=== PATIENT | male | born 1985 | race American Indian/Alaskan Native ===

== ENCOUNTER 2020-06-14 16:32 | Emergency (ER) | payer SELFPAY ==
[2020-06-14 16:41] VITALS: BP 135/87
--- NOTE | 2020-06-14 18:09 | Event Note ---
ED Screening Note Date of service: 06/14/20 Time: 18:04 ED Screening Note: 35-year-old -[place] male presents to the emergency room with a chronic history of reflux and states that he is having neck abdominal pain with nausea and vomiting. Reports pain is worse when he eats. He states he is able to drink water. He takes Tagamet and Tums. Does not have a primary care provider. Denies any hematemesis. Denies any diarrhea. This initial assessment/diagnostic orders/clinical plan/treatment(s) is/are subject to change based on patients health status, clinical progression and re- assessment by fellow clinical providers in the ED. Further treatment and workup at subsequent clinical providers discretion. Patient/guardian urged not to elope from the ED as their condition may be serious if not clinically assessed and managed. Initial orders include:
[2020-06-14] MEDS ORDERED: SUCRALFATE 1 GM/10 ML ORAL LIQD PO ONE (18:10)
[2020-06-14] MEDS ORDERED: FAMOTIDINE 20 MG TAB PO ONE (18:10)
[2020-06-14 18:45] LABS: Basophils % (Auto) 0.6 % (0.0-1.8); Eosinophils # (Auto) 0.1 K/mm3 (0.0-0.4); Eosinophils % (Auto) 0.9 % (0.0-4.3); Hematocrit 45.6 % (35.5-45.6); Hemoglobin 15.2 gm/dl (11.8-15.2); Lymphocytes # (Auto) 1.5 K/mm3 (1.2-5.4); Lymphocytes % (Auto) 24.4 % (13.4-35.0); Mean Corpuscular HGB Conc 33 % (32-34); Mean Corpuscular Volume 99 fl (84-94); Monocytes # (Auto) 0.5 K/mm3 (0.0-0.8); Monocytes % (Auto) 8.5 % (0.0-7.3); Platelet Count 298 K/mm3 (140-440); Red Cell Distribution Width 13.4 % (13.2-15.2)
[2020-06-14 19:06] LABS: Alanine Aminotransferase 20 units/L (7-56); Albumin 4.2 g/dL (3.9-5); BUN/Creatinine Ratio 8; Blood Urea Nitrogen 8 mg/dL (9-20); Calcium 10.1 mg/dL (8.4-10.2); Hemolysis Index 11
[2020-06-14] MEDS ORDERED: ALUM-MAG HYDROXIDE-SIMETHICONE 200-200-20MG/5ML ORAL LIQD 30 ML PO ONE (20:43)
[2020-06-14] MEDS ORDERED: LIDOCAINE VISCOUS 2% 15 ML ORAL LIQD PO ONE (20:43)
--- NOTE | 2020-06-14 20:43 | Emergency Department Report ---
ED General Adult HPI - General Chief complaint: Abdominal Pain Stated complaint: WEAK/BACK/ABDOMINAL PAIN Time Seen by Provider: 06/14/20 19:24 Source: patient Mode of arrival: Ambulatory Limitations: No Limitations - History of Present Illness Initial comments: 35-year-old -Thai male patient presents with complaints of upper abdominal pain intermittently x1 year, worsening for the past 3 days. He describes the pain as burning and states it improves with cimetidine. Patient also states the pain does not occur if he eats foods. He rates his current pain as a 5/10 in severity. He denies any vomiting, diarrhea, melena/hematochezia, fever/chills/sweats, chest pain, or shortness of breath. No prior history of abdominal surgeries per patient. He has not seen his primary care doctor for his symptoms. Severity scale (0 -10): 5 - Related Data Previous Rx's Medication Instructions Recorded Last Taken Type Omeprazole 40 mg PO QAM #30 capsule. 06/14/20 Unknown Rx Sucralfate [Carafate] 1 gm PO Q6HR 10 Days #40 tablet 06/14/20 Unknown Rx Allergies Allergy/AdvReac Type Severity Reaction Status Date / Time No Known Allergies Allergy Unverified 06/14/20 16:41 ED Review of Systems ROS: Stated complaint: WEAK/BACK/ABDOMINAL PAIN Other details as noted in HPI Constitutional: denies: chills, diaphoresis, fever, malaise, weakness Respiratory: denies: cough, shortness of breath Cardiovascular: denies: chest pain Gastrointestinal: abdominal pain. denies: nausea, vomiting, diarrhea, constipation Genitourinary: denies: urgency, dysuria, frequency, hematuria Skin: denies: change in color Neurological: denies: headache Hematological/Lymphatic: denies: easy bleeding, swollen glands ED Past Medical Hx - Past Medical History Previous Medical History?: No - Surgical History Past Surgical History?: No - Medications Home Medications: Home Medications Medication Instructions Recorded Confirmed Last Taken Type Omeprazole 40 mg PO QAM #30 capsule. 06/14/20 Unknown Rx Sucralfate [Carafate] 1 gm PO Q6HR 10 Days #40 tablet 06/14/20 Unknown Rx ED Physical Exam - General Limitations: No Limitations General appearance: alert, in no apparent distress - Head Head exam: Present: atraumatic, normocephalic - Eye Eye exam: Present: normal appearance. Absent: scleral icterus - ENT ENT exam: Present: normal exam - Neck Neck exam: Present: normal inspection, full ROM - Respiratory Respiratory exam: Present: normal lung sounds bilaterally. Absent: respiratory distress - Cardiovascular Cardiovascular Exam: Present: regular rate, normal rhythm. Absent: systolic murmur, diastolic murmur, rubs, gallop - GI/Abdominal GI/Abdominal exam: Present: soft, normal bowel sounds. Absent: distended, tenderness, guarding, rebound, rigid - Back Exam Back exam: Present: full ROM - Neurological Exam Neurological exam: Present: alert, oriented X3, normal gait - Psychiatric Psychiatric exam: Present: normal affect, normal mood - Skin Skin exam: Present: warm, dry, intact, normal color. Absent: rash ED Course Vital Signs 06/14/20 16:36 Temperature 97.6 F Pulse Rate 78 Respiratory 17 Rate Blood Pressure 135/87 [Right] O2 Sat by Pulse 100 Oximetry ED Medical Decision Making - Lab Data Result diagrams: 06/14/20 18:19 06/14/20 18:19 Lab Results 06/14/20 06/14/20 Range/Units 18:19 18:19 WBC 6.3 (4.5-11.0) K/mm3 RBC 4.60 (3.65-5.03) M/mm3 Hgb 15.2 (11.8-15.2) gm/dl Hct 45.6 (35.5-45.6) % MCV 99 H (84-94) fl MCH 33 H (28-32) pg MCHC 33 (32-34) % RDW 13.4 (13.2-15.2) % Plt Count 298 (140-440) K/mm3 Lymph % (Auto) 24.4 (13.4-35.0) % [place] % (Auto) 8.5 H (0.0-7.3) % Eos % (Auto) 0.9 (0.0-4.3) % Baso % (Auto) 0.6 (0.0-1.8) % Lymph # (Auto) 1.5 (1.2-5.4) K/mm3 [place] # (Auto) 0.5 (0.0-0.8) K/mm3 Eos # (Auto) 0.1 (0.0-0.4) K/mm3 Baso # (Auto) 0.0 (0.0-0.1) K/mm3 Seg Neutrophils % 65.6 (40.0-70.0) % Seg Neutrophils # 4.1 (1.8-7.7) K/mm3 Sodium 134 L (137-145) mmol/L Potassium 4.3 (3.6-5.0) mmol/L Chloride 95.4 L (98-107) mmol/L Carbon Dioxide 29 (22-30) mmol/L Anion Gap 14 mmol/L BUN 8 L (9-20) mg/dL Creatinine 1.0 (0.8-1.3) mg/dL Estimated GFR > 60 ml/min BUN/Creatinine Ratio 8 % Glucose 97 (75-100) mg/dL Calcium 10.1 (8.4-10.2) mg/dL Total Bilirubin 0.40 (0.1-1.2) mg/dL AST 21 (5-40) units/L ALT 20 (7-56) units/L Alkaline Phosphatase 83 (35-129) units/L Total Protein 7.1 (6.3-8.2) g/dL Albumin 4.2 (3.9-5) g/dL Albumin/Globulin Ratio 1.4 % Lipase 14 (13-60) units/L - Medical Decision Making 35-year-old -Thai male patient presents with complaints of upper abdominal pain intermittently x1 year, worsening for the past 3 days. He describes the pain as burning and states it improves with cimetidine. Patient also states the pain does not occur if he eats foods. He rates his current pain as a 5/10 in severity. He denies any vomiting, diarrhea, melena/hematochezia, fever/chills/sweats, chest pain, or shortness of breath. No prior history of abdominal surgeries per patient. He has not seen his primary care doctor for his symptoms. No abdominal tenderness to palpation noted on exam. No significant abnormalities noted on CBC, CMP, or lipase. Given improvement in symptoms with cimetidine, suspect gastritis or GERD. Patient given GI cocktail and states his symptoms have improved. Patient is vitals are WNL, he is well-appearing, he is stable for discharge home. Omeprazole and Carafate given for home. Recommend follow-up with GI for further evaluation. Strict return precautions discussed in detail with patient who verbalized understanding. Critical care attestation.: If time is entered above; I have spent that time in minutes in the direct care of this critically ill patient, excluding procedure time. ED Disposition Clinical Impression: Abdominal pain, Chronic GERD Disposition: DC-01 TO HOME OR SELFCARE Is pt being admited?: No Condition: Stable Instructions: Abdominal Pain, Adult, Gastroesophageal Reflux Disease, Adult Prescriptions: Sucralfate [Carafate] 1 gm PO Q6HR 10 Days #40 tablet Omeprazole 40 mg PO QAM #30 capsule. Referrals: [facility] [Provider Group] - 3-5 Days PRIMARY CARE, [Primary Care Provider] - 3-5 Days
== END 2020-06-14 22:00 | disposition home or self-care (01) ==
LOC: ED 16:32
DX: K21.9 Gastro-esophageal reflux disease without esophagitis (principal); R10.10 Upper abdominal pain, unspecified; Z79.899 Other long term (current) drug therapy
CPT/HCPCS: 36415; 80053; 83690; 85025